=== PATIENT | male | born 1975 | race Caucasian/White ===

== ENCOUNTER 2018-11-30 11:01 | Emergency (ER) | payer BC ==
[2018-11-30 12:07] VITALS: BP 117/64
[2018-11-30] MEDS ORDERED: Tetan/Diph/Pertus SYR(Tdap)* 0.5 ML SYR(BOOSTRIX) use SYR contains LATEX IM ONE (12:10)
--- NOTE | 2018-11-30 12:51 | UC ---
Hand/Wrist HPI - HPI Summary HPI Summary: 43-year-old male comes in with a chief complaint of puncture wounds to his right palm. Yesterday he was pushing on a piece of wood in the pelvis to nail sticking out of it and they punctured into the palm of his right hand. He feels one was fairly shallowly of the fairly deep. One of the 2 wounds did bleed quite a bit the abdomen did not. He does not believe there is any foreign body left in there. he is not up-to-date on his tetanus. Some pain with movement of the hand and wrist. No drainage no streaking. - History Of Current Complaint Chief Complaint: [place]CSkin Stated Complaint: RIGHT HAND INJURY Time Seen by Provider: 11/30/18 12:42 Pain Intensity: 2 - Allergies/Home Medications Allergies/Adverse Reactions: Allergies Allergy/AdvReac Type Severity Reaction Status Date / Time No Known Allergies Allergy Verified 11/30/18 12:03 Home Medications: Home Medications Vitamin THERAPEUTIC TAB* [Theragran TAB*] 1 tab PO DAILY 11/30/18 [History Confirmed 11/30/18] PMH/Surg Hx/FS Hx/Imm Hx Previously Healthy: Yes - Surgical History Surgical History: None - Family History Known Family History: Positive: Non-Contributory - Social History Alcohol Use: None Substance Use Type: None Smoking Status (MU): Never Smoked Tobacco Review of Systems All Other Systems Reviewed And Are Negative: Yes Constitutional: Positive: Negative Skin: Positive: Other - SEE HPI Eyes: Positive: Negative ENT: Positive: Negative Respiratory: Positive: Negative Cardiovascular: Positive: Negative Gastrointestinal: Positive: Negative Motor: Positive: Negative Neurovascular: Positive: Negative Musculoskeletal: Positive: Negative Neurological: Positive: Negative Psychological: Positive: Negative Is Patient Immunocompromised?: No Physical Exam Triage Information Reviewed: Yes Appearance: Well-Appearing, No Pain Distress, Well-Nourished Vital Signs: Initial Vital Signs Temp 98.1 F 11/30/18 12:01 Pulse 56 11/30/18 12:01 Resp 16 11/30/18 12:01 BP 117/64 11/30/18 12:01 Pulse Ox 100 11/30/18 12:01 Vital Signs Reviewed: Yes Eye Exam: Normal Eyes: Positive: Conjunctiva Clear Neck: Positive: Supple Respiratory: Positive: No respiratory distress Musculoskeletal: Positive: Strength Intact, ROM Intact Neurological: Positive: Alert Psychological: Positive: Age Appropriate Behavior Skin: Positive: Other - There are 2 puncture wounds in the palm of the right hand just distal to the wrist. No drainage no erythema. No streaking. Wrist and hand have full range of motion. Hand/Wrist Course/Dx - Course Course Of Treatment: We discussed x-rays for foreign body localization patient declined the x-rays. No obvious signs of infection at this time however we will treat prophylactically with Keflex 500 mg by mouth 3 times a day for 7 days. Patient received his T tap here in clinic. Patient needs to get reevaluated if is any signs of infection or any other concerns. - Differential Dx/Diagnosis Provider Diagnosis: Puncture wound of right hand Discharge - Sign-Out/Discharge Documenting (check all that apply): Patient Departure All imaging exams completed and their final reports reviewed: No Studies - Discharge Plan Condition: Stable Disposition: HOME Prescriptions: Cephalexin CAP* [Keflex CAP*] 500 mg PO TID #21 cap Patient Education Materials: Puncture Wound (ED) Referrals: Christopher Goodson MD [Primary Care Provider] - Additional Instructions: FOLLOW UP WITH YOUR DOCTOR IF NOT COMPLETELY IMPROVED. YOU RECEIVED THE TDAP (TETANUS/DIPTHERIA) IMMUNIZATION TODAY. GET REEVALUATED SOONER IF WORSE; PAIN, SIGNS OF INFECTION OR ANY QUESTIONS OR CONCERNS. - Billing Disposition and Condition Condition: STABLE Disposition: Home
== END 2018-11-30 12:56 | disposition home or self-care (01) ==
LOC: UCCORT 11:01
DX: S61.431A Puncture wound without foreign body of right hand, initial encounter (principal); X58.XXXA Exposure to other specified factors, initial encounter; Y93.89 Activity, other specified; Y92.9 Unspecified place or not applicable; Z23 Encounter for immunization
CPT/HCPCS: 90471; 90715; 99202; G0463